=== PATIENT | female | born 1985 | race Two or more races ===

== ENCOUNTER 2022-01-23 11:25 | Inpatient (IN) | payer OTHER ==
[~2022-01-23] VITALS: Ht 160 cm; Wt 109.8 kg
[2022-01-24] MEDS ORDERED: IBU800 MG PO (08:41)
[2022-01-24] MEDS ORDERED: COLACE100 MG PO (08:42)
== END 2022-01-25 10:14 | disposition home or self-care (01) | DRG 819 ==
LOC: ER 11:25 → SEC-K 13:35 → O/R 20:37 → OB/GYN 22:08
PROVIDERS: ADMIT Obstetrics & Gynecology; ATTEND Obstetrics & Gynecology
PROC: 0UB50ZZ Excision of Right Fallopian Tube, Open Approach (ICD-10-PCS; 2022-01-23)
PROC: 10D20ZZ Extraction of Products of Conception, Ectopic, Open Approach (ICD-10-PCS; principal; 2022-01-23 17:00)
DX: O00.101 Right tubal pregnancy without intrauterine pregnancy (principal); Z20.822 Contact with and (suspected) exposure to COVID-19